=== PATIENT | female | born 1990 | race African-American/Black ===

== ENCOUNTER 2024-11-24 12:21 | Emergency (ER) | payer SELFPAY ==
[~2024-11-24] VITALS: Ht 165.1 cm; Wt 82.0 kg
[2024-11-24 13:00] VITALS: O2SAT 99
[2024-11-24] MEDS: ACETAMINOPHEN 325MG TABLET PO ONE (14:30)
[2024-11-24] MEDS: METOCLOPRAMIDE HCL 5MG TABLET PO ONE (14:43)
[2024-11-24] MEDS: DEXAMETHASONE 10 MG/ML VIAL PO ONE (14:43)
[2024-11-24 15:07] VITALS: BP 149/98; PULSE 74; RESP 16; TEMP 37.00296; O2SAT 99
== END 2024-11-24 15:09 | disposition home or self-care (01) ==
LOC: ER 12:21
DX: S09.90XA Unspecified injury of head, initial encounter (principal); E11.9 Type 2 diabetes mellitus without complications; I10 Essential (primary) hypertension; Z79.52 Long term (current) use of systemic steroids; W01.0XXA Fall on same level from slipping, tripping and stumbling without subsequent striking against object, initial encounter; Y93.89 Activity, other specified; Y92.89 Other specified places as the place of occurrence of the external cause; Y99.8 Other external cause status
CPT/HCPCS: 99284; 70450; J8597; J1100

== ENCOUNTER 2025-06-02 12:05 | Emergency (ER) | payer SELFPAY ==
[~2025-06-02] VITALS: Ht 167.6 cm; Wt 82.0 kg
[2025-06-02 12:13] VITALS: O2SAT 100
[2025-06-02] MEDS ORDERED: CAPT25TA3 MT (14:34)
[2025-06-02 14:48] LABS: BASOPHILS % 0.9 % (0.0-2.0); EOSINOPHILS % 1.0 % (0.0-5.0); HEMATOCRIT. 41.7 % (36.0-48.0); HEMOGLOBIN. 13.4 g/dL (12.0-16.0); LYMPHOCYTES % 58.3 % (20.0-50.0); MEAN PLATELET VOLUME 9.0 fl (7.4-10.4); MONOCYTES % 6.7 % (2.0-8.0); NEUTROPHILS % 33.1 % (40.0-76.0); PLATELET 264 x1000/uL (130-400); RED BLOOD CELL COUNT 5.12 mill/uL (4.2-5.4); RED CELL DISTRIBUTION WIDTH 13.6 % (11.6-14.6)
[2025-06-02 14:54] VITALS: BP 154/104; PULSE 76; RESP 18; TEMP 36.7; O2SAT 100
[2025-06-02 14:56] LABS: INR 1.0
[2025-06-02 15:00] LABS: CREATININE 0.8 mg/dL (0.6-1.0); HCG SCREEN NEGATIVE; UREA NITROGEN BLOOD 8 mg/dL (9-23)
[2025-06-02 15:01] LABS: TROPONIN I HIGH SENSITIVITY < 4 ng/L (3.0-34)
== END 2025-06-02 14:56 | disposition home or self-care (01) ==
LOC: ER 12:05
DX: R51.9 Headache, unspecified (principal); E11.9 Type 2 diabetes mellitus without complications; I10 Essential (primary) hypertension; Z79.899 Other long term (current) drug therapy; Z98.890 Other specified postprocedural states
CPT/HCPCS: 36415; 71045; 80048; 84484; 84703; 85025; 99284